=== PATIENT | female | born 1975 | race Caucasian/White ===

== ENCOUNTER 2023-07-13 23:56 | Emergency (ER) | payer BC, SELFPAY ==
[2023-07-14 00:01] VITALS: BP 164/95; PULSE 91; RESP 20; TEMP 36.2; O2SAT 99
--- NOTE | 2023-07-14 00:25 | ED.GENADULT ---
HPI - General Adult General Chief complaint: Laceration/Wound Stated complaint: head laceration Time Seen by Provider: 07/14/23 00:25 History of Present Illness HPI narrative: pt tripped while walking, hit head on door jam. No LOC. No neck pain. Laceration on top of head. Pt not on blood thinners 47-year-old woman presenting to the emergency department accompanied by significant other with complaint of head injury. Apparently had tripped while walking through a door frame striking her head on said frame. Describes an axial impact. She is not anticoagulated. Head has been bleeding. There was no loss of consciousness. No visual changes. Severe pain. No radicular symptoms to extremities. Review of Systems Status of ROS: Reports: 6 or more systems reviewed and unremarkable except as noted in History and below [facility] Social History Non-prescribed substance use: denies use Exam Narrative: Exam Narrative: Clearly uncomfortable head. Very apprehensive of exam. Demonstrating severe pain. Cranial nerves 2-12 are intact with pupils equal and briskly reactive. Neck is supple however very tender to palpation about C7 midline and surrounding musculature more so on the left. Back is nontender otherwise. Head with dried blood and half a racquetball sized soft swelling at the left posterior upper scalp. So exquisitely tender even to manipulation of the hair it makes it hard to examine. Will need pain medication. Ear canals are clear fluid. Breathing easily other than when pain escalates. Heart with elevated rate in a regular rhythm. Well-perfused peripherally, moving all extremities with full strength and without apparent sensory deficits. Const: Vital Signs, click to edit/add: Vital Signs - 24 hr 07/14/23 00:01 Temperature 97.2 F L Pulse Rate [Left P ulse Oximeter] 91 Respiratory Rate 20 Blood Pressure [Ri ght Upper Arm] 164/95 H Pulse Oximetry 99 Oxygen Delivery Me thod Room Air Documenting provider has reviewed patient's vital signs: yes Course Vital Signs Vital signs: Initial Vital Signs Temperature 97.2 F L 07/14/23 00:01 Temperature Source Temporal Artery Scan 07/14/23 00:01 Pulse Rate 91 07/14/23 00:01 Pulse Rhythm Regular 07/14/23 00:01 Respiratory Rate 20 07/14/23 00:01 Blood Pressure 164/95 H 07/14/23 00:01 Blood Pressure Mean 118 H 07/14/23 00:01 Blood Pressure Position Sitting 07/14/23 00:01 Pulse Oximetry 99 07/14/23 00:01 Oxygen Delivery Method Room Air 07/14/23 00:01 Vital Signs Temperature 97.2 F L 07/14/23 00:01 Pulse Rate 91 07/14/23 00:01 Respiratory Rate 20 07/14/23 00:01 Blood Pressure 164/95 H 07/14/23 00:01 Pulse Oximetry 99 07/14/23 00:01 Oxygen Delivery Method Room Air 07/14/23 00:01 Temperature 97.2 F L 07/14/23 00:01 Pulse Rate 91 07/14/23 00:01 Respiratory Rate 20 07/14/23 00:01 Blood Pressure 164/95 H 07/14/23 00:01 Pulse Oximetry 99 07/14/23 00:01 Oxygen Delivery Method Room Air 07/14/23 00:01 Medical Decision Making MDM Narrative Medical decision making narrative: Clearly head injury. I am not able to initially appreciate a laceration. Generally more abraded with hematoma. Given degree of pain and descriptor of injury I think should have head imaging and neck due to axial loading. Needs pain control and to allow for further exam given IM 1 mg Dilaudid and placed let on the scalp. Imaging of head and neck reviewed by me can appreciate hematoma and soft tissue swelling of the parietal scalp. Cervical spine noted for some straightening consistent with what I think is muscle spasm but no acute bony abnormality. Radiology over-read of CT head IMPRESSION: 1. No acute intracranial hemorrhage or mass effect. 2. Large parietal scalp subgaleal hematoma. No acute calvarial fracture. Return to further examine her scalp. Again no laceration evident more of an abrasion and hematoma. Will need to be soaked to better clean probably managed best in-home bathtub/shower. Placed a soft cervical collar as well. This did allow this did allow Ms. Calixto to relax and helped with her pain. See patient discharge plan Discharge Plan Discharge Clinical Impression: Abrasion of scalp, Muscle spasm, Closed head injury Patient Disposition: Home w/ Parent or Adult Condition: Improved Additional Instructions: I think soaking your head in the bathtub will be the most gentle weight to clean your scalp of this blood. I have not been able to see a laceration to suture. You do have hematoma in your scalp. Can wear the soft collar for comfort over this next week. Might want to do some gentle pull down stretching of your neck few times a day. See handout on upper back pain for some other stretches and exercises a might be helpful. Signs and symptoms of a concussion can be headache and nausea on exertion which would also be an indication to back off that level of activity and reassess in 1 week.? Other signs might be a smoldering headache or nausea for an extended period of time, mood lability, sleep disturbances, difficulty with concentration, persistent light sensitivity. Return for severe headache, repeated vomiting, new and focal weakness, visual changes, discoordination, unusual somnolence, symptoms as mentioned up above lasting longer than a week. Important to get quality and regular sleep and stay well hydrated. Follow Up/Referrals: Provider,Not a Local [Primary Care Provider] - Stand Alone Forms: Apply Financials Limitedth Info Instructions
--- NOTE | 2023-07-14 00:35 | CRLHL7_ITS ---
For Patients: As a result of the Century Cures Act, medical imaging exams and procedure reports are released immediately into your electronic medical record. You may view this report before your referring provider. If you have questions, please contact your health care provider. INDICATION: Trauma, fall. TECHNIQUE: CT head without contrast. COMPARISON: None. FINDINGS: CSF spaces: Within normal limits for age. Brain parenchyma: Partially empty sella, of uncertain clinical significance. The putnam-white differentiation is normal. No sign of mass, hemorrhage, or midline shift. Skull base and calvarium: The visualized paranasal sinuses and mastoid air cells demonstrate no acute or significant findings. The visualized orbits are grossly unremarkable. No skull fractures. Large parietal scalp subgaleal hematoma. IMPRESSION: 1. No acute intracranial hemorrhage or mass effect. 2. Large parietal scalp subgaleal hematoma. No acute calvarial fracture. Please note that all CT scans at this facility use dose modulation, iterative reconstruction, and/or weight-based dosing when appropriate to reduce radiation dose to as low as reasonably achievable. Dictated by Edson Garcia MD @ 07/14/2023 2:21:49 AM (Electronically Signed)
--- NOTE | 2023-07-14 00:35 | CRLHL7_ITS ---
For Patients: As a result of the Cures Act, medical imaging exams and procedure reports are released immediately into your electronic medical record. You may view this report before your referring provider. If you have questions, please contact your health care provider. INDICATION: Trauma, fall. TECHNIQUE: CT cervical spine without contrast. COMPARISON: None. FINDINGS: Vertebrae: Straightening of the normal cervical lordosis, which may be due to muscle spasm or positioning. There are no fractures or suspicious bony lesions. Discs and facet joints: Disc spaces and facets are within normal limits. Extraspinal findings: Prevertebral soft tissues, visualized airway, and visualized lungs are unremarkable. IMPRESSION: No acute fracture or traumatic subluxation of the cervical spine. Please note that all CT scans at this facility use dose modulation, iterative reconstruction, and/or weight-based dosing when appropriate to reduce radiation dose to as low as reasonably achievable. Dictated by Edson Garcia MD @ 07/14/2023 2:23:56 AM (Electronically Signed)
[2023-07-14] MEDS: LIDOCAINE/EPINEP/TETRACAINE 3 ML GEL..ML. TOPICAL (00:43)
[2023-07-14] MEDS: HYDROmorphone 0.5 mg/0.5 ml inj 1 MG IM (00:43)
== END 2023-07-14 03:15 | disposition home or self-care (01) ==
PROVIDERS: Emergency Provider Family Medicine
DX: S09.90XA Unspecified injury of head, initial encounter (principal); S00.91XA Abrasion of unspecified part of head, initial encounter; W01.10XA Fall on same level from slipping, tripping and stumbling with subsequent striking against unspecified object, initial encounter; Y93.01 Activity, walking, marching and hiking; M62.838 Other muscle spasm
CPT/HCPCS: 70450; 72125; 99284; J1170